=== PATIENT | female | born 1975 | race Caucasian/White ===

== ENCOUNTER 2020-10-06 19:49 | Emergency (ER) | payer OTHER ==
[~2020-10-06] VITALS: Ht 170.2 cm; Wt 102.7 kg
[2020-10-06 20:53] LABS: BASOPHILS % (AUTO) 0.3 % (0-1); EOSINOPHILS % (AUTO) 0.1 % (0-6); HEMATOCRIT 38.7 % (35.0-45.0); HEMOGLOBIN 12.8 g/dl (12.0-16.0); LYMPHOCYTES % (AUTO) 5.7 % (21-51); MEAN CORPUSCULAR HEMOGLOBIN 28.4 PG (27.0-31.0); MEAN CORPUSCULAR HGB CONC 33.1 g/dL (33.0-36.5); MEAN CORPUSCULAR VOLUME 85.8 FL (78-98); MEAN PLATELET VOLUME 8.4 FL (7.4-10.4); MONOCYTES % (AUTO) 5.7 % (2-12); NEUTROPHILS # (AUTO) 15.2 X10'3 (1.8-7.7); NEUTROPHILS % (AUTO) 88.2 % (42-75); PLATELET COUNT 242 X10'3 (140-440); RED BLOOD COUNT 4.51 X10'6 (4.20-5.60); RED CELL DISTRIBUTION WIDTH 17.2 % (11.5-14.5); WHITE BLOOD COUNT 17.3 X10'3 (4.5-11.0)
[2020-10-06] MEDS ORDERED: ondansetron/PF 4mg/2ml inj IV ONE (21:00)
[2020-10-06] MEDS ORDERED: ketorolac trometh. 30mg/ml inj. IV ONE (21:00)
[2020-10-06] MEDS ORDERED: famotidine/PF 10 mg/ml inj IV ONE (21:00)
[2020-10-06] MEDS ORDERED: pantoprazole 40 MG vial IV ONE (21:00)
[2020-10-06] MEDS ORDERED: normal saline 1000ml 1,000 ML IV ONE (21:00)
[2020-10-06 21:05] LABS: ALANINE AMINOTRANSFERASE 19 U/L (12-78); ALBUMIN 3.7 G/DL (3.4-5.0); ALKALINE PHOSPHATASE 71 IU/L (46-116); ANION GAP 12 (8-16); ASPARTATE AMINO TRANSFERASE 11 U/L (10-37); BILIRUBIN,TOTAL 1.2 MG/DL (0.1-1.0); BLOOD UREA NITROGEN 10 MG/DL (7-18); CALCIUM 8.3 MG/DL (8.5-10.1); CHLORIDE 99 MMOL/L (99-107); CREATININE 0.83 MG/DL (0.40-0.90); GLUCOSE 139 MG/DL (70-104); LIPASE 105 U/L (73-393); POTASSIUM 3.6 MMOL/L (3.5-5.1); SODIUM 136 MMOL/L (135-145); TOTAL CARBON DIOXIDE 25.5 MMOL/L (24-32); TOTAL PROTEIN 7.3 G/DL (6.4-8.2); eGFR 74 ML/MIN
[2020-10-06 21:09] LABS: URINE HCG NEGATIVE (NEG)
[2020-10-06 21:14] LABS: CLARITY,URINE CLEAR (Clear); COLOR,URINE STRAW (Yellow); GLUCOSE, URINE NEGATIVE (Neg); KETONES,URINE NEGATIVE (Neg); LEUKOCYTE ESTERASE ,URINE NEGATIVE (Neg); NITRITES, URINE NEGATIVE (Neg); OCCULT BLOOD,URINE TRACE-INTACT (Neg); PH,URINE 5.5 (4.8-8.0); PROTEIN,URINE NEGATIVE (Neg); UROBILINOGEN,URINE 0.2 E.U/dL (0.2-1.0)
[2020-10-06 21:15] LABS: UA COLLECTION TYPE CLN CATCH MIDSTREAM
[2020-10-06 21:21] LABS: BACTERIA,URINE NONE SEEN /HPF (Neg); RBC,URINE NONE SEEN /HPF (0-2); SQUAMOUS EPITHELIAL CELL,UR FEW /LPF (FEW); WBC,URINE NONE SEEN /HPF (0-4)
[2020-10-06] MEDS ORDERED: proCHLORperazine 10 MG/2 ml inj IV ONE (21:55)
[2020-10-06] MEDS ORDERED: dicyclomine 10 MG capsule PO ONE (21:55)
[2020-10-06] MEDS ORDERED: ONDA4TAB6 PO ×2 (21:55→22:00)
[2020-10-06 22:34] VITALS: BP 128/64
== END 2020-10-06 22:36 | disposition home or self-care (01) ==
LOC: ER 19:51
DX: R11.2 Nausea with vomiting, unspecified (principal); R10.9 Unspecified abdominal pain; Z79.899 Other long term (current) drug therapy
CPT/HCPCS: 36415; 80053; 81001; 81025; 83690; 84145; 85025; 96361; 96374; 96375; 99284; C9113; J0780; J1885; J2405; J3490; J7030